=== PATIENT | male | born 1945 | race Caucasian/White ===

== ENCOUNTER 2016-05-26 06:14 | Inpatient (IN) | payer MEDICARE ==
[2016-05-19 10:55] LABS: BASOPHILS 0.5 %; BASOPHILS ABSOLUTE 0.05 10/3/uL (0.0-0.16); EOSINOPHILS 2.7 %; EOSINOPHILS ABSOLUTE 0.25 10/3/uL (0.0-0.53); HEMATOCRIT 45.9 % (40.0-51.0); HEMOGLOBIN 15.4 g/dL (13.6-17.8); IMMATURE GRANULOCYTES 1.8 %; IMMATURE GRANULOCYTES ABSOLUTE 0.17 10/3/uL (0.0-0.11); LYMPHOCYTES ABSOLUTE 3.81 10/3/uL (0.67-4.30); MEAN CORPUS HGB CONC 33.6 g/dL (32.0-36.0); MEAN CORPUSCULAR HEMOGLOB 29.6 pg (26.0-34.0); MEAN CORPUSCULAR VOLUME 88.3 fL (80-100); MONOCYTES 8.6 %; NEUTROPHILS 45.4 %; NEUTROPHILS ABSOLUTE 4.22 10/3/uL (2.02-8.40); PLATELET COUNT 242 10/3/uL (150-400); RBC DISTRIBUTION WIDTH 13.7 % (12.0-16.0); WHITE BLOOD CELLS 9.3 10/3/uL (4.5-10.5)
[2016-05-19 10:58] LABS: MANUAL DIFF NO %
[2016-05-19 11:04] LABS: BUN (BLOOD UREA NITROGEN) 16 MG/DL (6-23); CALCIUM, SERUM 9.6 MG/DL (8.5-10.4); CHLORIDE, SERUM 106 MMOL/L (96-112); CO2 (CARBON DIOXIDE) 28 MMOL/L (24-34); CREATININE 1.22 MG/DL (0.70-1.30); GFR AFRICAN AMERICAN 70 ML/MIN (>=60); GFR NON AFRICAN AMERICAN 60 ML/MIN (>=60); GLUCOSE, SERUM 160 MG/DL (60-99); PARTIAL THROMBO TIME 33.1 SEC (22.5-37.2); POTASSIUM, SERUM 4.8 MMOL/L (3.5-5.3); PROTIME (NOT ORD) 12.6 SEC (12.0-14.5); SODIUM, SERUM 143 MMOL/L (135-148)
[2016-05-19 11:06] LABS: ASCORBIC ACID (UR NOT ORDER) NEG (NEG); BILIRUBIN, URINE NEGATIVE (NEG); KETONE, URINE NEGATIVE (NEG); LEUKOCYTE ESTERASE(NOT OR NEG (NEG); WBC (NOT ORDERED) (RFLEX) 5 (0-5)
--- NOTE | ~2016-05-26 | HP ---
History And Physical [address] [address] NAME: JOES M MIGUEL SR : 46 STATUS : ADM IN [facility]#: [id number] AGE: 70 ADM/REG DATE : 05/26/16 MR#: [id number] REPORT SERV DATE: 05/27/16 DICTATED BY: NIKHIL LEGGETT DATE: 05/26/16 REPORT STATUS : Draft TRANSCRIBED BY: MODL DATE: 05/26/16 DATE OF ADMISSION: 05/26/2016 CHIEF COMPLAINT: Adenocarcinoma of the prostate, clinical stage T2b, Hilaria score 4+3=7, maximum PSA 4.3. HISTORY OF PRESENT ILLNESS: Mr. Miguel is a 70-year-old male who was diagnosed with adenocarcinoma of the prostate at the end of 2015. The patient initially did not want treatment, however, he subsequently decided to proceed with laparoscopic robot-assisted radical prostatectomy and bilateral pelvic node sampling. He will undergo that procedure today and be admitted afterwards. The patient has obstructive voiding symptoms. He denies erectile dysfunction, although I do not think he is sexually active. PAST MEDICAL HISTORY: Diabetes and dyslipidemia. PAST SURGICAL HISTORY: None. MEDICATIONS: Home medicines are aspirin which has been on hold, metformin which is on hold today, pravastatin, and some [id number]-[id number] medicines. ALLERGIES: NO KNOWN DRUG ALLERGIES. SOCIAL HISTORY: The patient has been a tobacco user. He denies alcohol abuse. FAMILY HISTORY: Negative for prostate cancer. REVIEW OF SYSTEMS: See nursing questionnaire. PHYSICAL EXAMINATION: GENERAL: Shows a well-developed, well-nourished white male, in no acute distress. He is awake, alert, and oriented x3. HEENT: Sclerae anicteric. NECK: Supple. LUNGS: Clear. HEART: Regular rate and rhythm. ABDOMEN: Soft, nontender. No palpable abdominal masses. No hepatosplenomegaly. GENITOURINARY: Penis normal. Testes descended and nontender. No masses. Prostate large, there is a nodule at the left base. EXTREMITIES: Lower extremities show no deformities. IMPRESSION: Adenocarcinoma of the prostate, clinical stage T2b, Cashion score 4+3=7. PLAN: Laparoscopic robot-assisted radical prostatectomy and bilateral pelvic node sampling. History And Physical [address] [address] NAME: JOSE M MIGUEL SR : 46 STATUS : ADM IN PAT#: [id number] AGE: 70 ADM/REG DATE : 05/26/16 MR#: [id number] REPORT SERV DATE: 05/27/16 DICTATED BY: NIKHIL LEGGETT DATE: 05/26/16 REPORT STATUS : Draft TRANSCRIBED BY: ANA DATE: 05/26/16 Potential complications of bleeding, infection, urinary incontinence, bladder neck obstruction, loss of ejaculate, erectile dysfunction, and injury to adjacent structures such as bladder, ureters, rectum, colon, intestine, nerves, as well as bowel obstruction and complications all have been explained to the patient. He both manually and verbally consents to proceed. PF/MODL Nikhil Leggett M.D. / [id number] CC: Nikhil Leggett M.D.
--- NOTE | ~2016-05-26 | OP ---
Record Of Operation [facility] [address] [place]. [address] NAME: JOSE M MIGUEL SR : 46 STATUS : ADM IN PAT#: [id number] AGE: 70 ADM/REG DATE : 05/26/16 MR#: [id number] REPORT SERV DATE: 05/27/16 DICTATED BY: NIKHIL LEGGETT DATE: 05/26/16 REPORT STATUS : Draft TRANSCRIBED BY: MODL DATE: 05/26/16 DATE OF PROCEDURE: 05/26/2016 PREOPERATIVE DIAGNOSIS: Adenocarcinoma of the prostate, clinical stage T2b, Hilaria score 4+3=7, maximum PSA 4.3. POSTOPERATIVE DIAGNOSIS: Adenocarcinoma of the prostate, clinical stage T2b, Hilaria score 4+3=7, maximum PSA 4.3. PROCEDURE: 1. Laparoscopic robot-assisted radical prostatectomy. 2. Laparoscopic robot-assisted bilateral pelvic node sampling. SURGEON: Nikhil Leggett M.D. NECKTIE OPERATOR POCKETS AND PIECES: Javier Downs. ANESTHESIA: General and local. BLOOD LOSS ESTIMATED: 250 mL. FLUID REPLACEMENT: 3 L of crystalloid. DRAINS: A 15-mm Saad drain in prevesical space and an 18-Tanzanian Leggett catheter per urethra with 15 mL of sterile water inflating the catheter balloon. INDICATION: A 70-year-old male with adenocarcinoma of the prostate. TECHNIQUE: The patient was identified, brought to the operating room, administered general anesthetic agent by the Anesthesia Service and intubated. He was positioned in the dorsal lithotomy position, appropriately padded and secured to the table. The abdomen was previously clipped and the entire abdomen, penis, groin, scrotum, and perineum were prepped and draped in the usual sterile fashion. A 16-Tanzanian Leggett catheter was passed in the bladder and left for drainage. All laparoscopic port sites were first infiltrated with 0.5% Marcaine plain. A 3-cm skin incision was made above the umbilicus, and a Kathrine technique was used to place a balloon trocar into the peritoneal space. Pneumoperitoneum was created by insufflating carbon dioxide. The abdominal pressure was raised to 15 mmHg. The patient was placed in steep Trendelenburg. Three robot arm ports and two mailing machine assistant ports were placed under direct laparoscopic vision. Once all ports were in position, the da Isha robot was brought to the table and mated to the ports. I took down some adhesions between the omentum and the bladder. I then took down some adhesions between the left colon and the pelvic sidewall. The cul-de-sac was opened sharply, and the seminal structures were exposed. The left and right vasa deferentia were clipped proximally and transected distally. The left and right seminal vesicles were dissected out and then blood supply was clipped laterally. Record Of Operation [facility] [address] [place]. [address] NAME: JOSE M MIGUEL SR : 46 STATUS : ADM IN PAT#: [id number] AGE: 70 ADM/REG DATE : 05/26/16 MR#: [id number] REPORT SERV DATE: 05/27/16 DICTATED BY: NIKHIL LEGGETT DATE: 05/26/16 REPORT STATUS : Draft TRANSCRIBED BY: ANA DATE: 05/26/16 Denonvilliers fascia was opened sharply as we swept the rectum off the undersurface of the prostate all the way out to the apex bilaterally. I released the neurovascular bundles of both the left and right side. I then divided the median umbilical ligaments and swept the bladder off the anterior abdominal wall and symphysis pubis. The peritoneum was opened just lateral to the median umbilical ligaments on each side all the way to the vasa deferentia bilaterally. The fat overlying the prostate gland was taken off with sharp dissection. The endopelvic fascia was pierced sharply at the prostatovesical junction, carried this out to the puboprostatic ligaments bilaterally. Attachments of striated sphincter were taken off the apex of prostate sharply. I encountered some bleeding from the dorsal venous complex. Dorsal venous complex was secured with laparoscopic WOLF stapling device and then divided. I oversewed this with 3-0 PDS. I switched to a 30-degree down lens and developed a plane between the bladder neck and the prostate. I opened the anterior bladder neck and elevated the Leggett catheter and came to the posterior bladder neck and I encountered my previously dissected out seminal structures. The lateral attachments of the bladder were taken off the prostate with sharp dissection. The posterior pedicles were taken with locking clips and then divided. On the left side, I sacrificed part of the left neurovascular bundle. On the right side, I am able to spare and all the way out to the apex. The prostate is now mobile all the way out to the apex. The urethra was divided and the last attachment of striated sphincter was taken off the apex of the prostate sharply. The posterior striated sphincter was divided. I took the fresh frozen section from the posterior striated sphincter. The bag was containing just muscular tissue and no prostate gland. The specimen was placed in the specimen retrieval bag and held for later retrieval. The abdominal pressure was lowered down to 7 mmHg. I irrigated the pelvis copiously. Oversewed part of the distal left neurovascular bundle. It was done with 3-0 PDS. Once fastidious hemostasis was achieved, I performed posterior reconstruction in two layers using 3-0 V-Loc. I then did a modified Van Velthoven vesicourethral anastomosis with 3-0 V-Loc. When the anastomosis was completed, I inserted a new 18-Tanzanian Leggett catheter. 15 mL of sterile water inflated the catheter balloon. I later tested the bladder. There was some extravasation. I sampled the external iliac and obturator lymph nodes from left and right side. Deanna packets seemed to cut in large. Locking clips and metallic clips were used for lymphostasis and hemostasis. The specimen packets were placed in a specimen retrieval bag and held for later retrieval. The instruments were taken out of the robot arm port and a 15-mm Saad drain was placed through that port and left in the prevesical space. The ports removed and the drain was later sutured to the skin with 2-0 Prolene. The da Isha robot was undocked. I transferred the string of the specimen bag out through the umbilical port. The mailing machine assistant 12 mm port was Record Of Operation [address] [address] NAME: JOSE M MIGUEL SR : 46 STATUS : ADM IN PAT#: [id number] AGE: 70 ADM/REG DATE : 05/26/16 MR#: [id number] REPORT SERV DATE: 05/27/16 DICTATED BY: NIKHIL LEGGETT DATE: 05/26/16 REPORT STATUS : Draft TRANSCRIBED BY: MODIsabella DATE: 05/26/16 removed and the fascia there was closed with a Thomas-Parish endoscopic closure system. All other ports were removed under low pressure. No port site bleeding was noted. I removed the balloon trocar and extended my fascial incision transversely by 2 cm in each direction. I extended the skin incision 1 cm cephalad. I then delivered the specimen out through the umbilical wound. I closed the fascia with [id number] 0 Vicryl sutures. The subcutaneous tissue of all ports was irrigated copiously. The skin of all ports was closed with 4-0 Monocryl. Dressings were applied, the catheter was secured, and the patient was awakened and taken to the recovery unit in stable and satisfactory condition. ROSINA/ANA Nikhil Leggett M.D. / [id number] CC: Nikhil Leggett M.D.
[~2016-05-26 06:14] MED LIST: ASAB PO; AVANDAMET1 TA4 PO; FIBER PILL PO; FLOMAX4 PO; GLUCOPHAGE1000 MG PO; LORT7 PO; NEXIUM40 PO; PRAVACHOL40 MG PO; SLEEP AID25 MG PO
[2016-05-26 14:20] LABS: BUN (BLOOD UREA NITROGEN) 14 MG/DL (6-23); CHLORIDE, SERUM 104 MMOL/L (96-112); CREATININE 1.13 MG/DL (0.70-1.30); GFR AFRICAN AMERICAN 76 ML/MIN (>=60); GFR NON AFRICAN AMERICAN 66 ML/MIN (>=60); SODIUM, SERUM 141 MMOL/L (135-148)
[2016-05-26 14:21] LABS: CALCIUM, SERUM 7.7 MG/DL (8.5-10.4); CO2 (CARBON DIOXIDE) 23 MMOL/L (24-34); GLUCOSE, SERUM 226 MG/DL (60-99); POTASSIUM, SERUM 3.8 MMOL/L (3.5-5.3)
[2016-05-27 07:06] LABS: HEMATOCRIT 34.8 % (40.0-51.0); HEMOGLOBIN 11.6 g/dL (13.6-17.8)
[2016-05-27 07:08] LABS: BUN (BLOOD UREA NITROGEN) 14 MG/DL (6-23); CALCIUM, SERUM 7.8 MG/DL (8.5-10.4); CHLORIDE, SERUM 103 MMOL/L (96-112); CO2 (CARBON DIOXIDE) 27 MMOL/L (24-34); CREATININE 1.08 MG/DL (0.70-1.30); GFR AFRICAN AMERICAN 81 ML/MIN (>=60); GFR NON AFRICAN AMERICAN 70 ML/MIN (>=60); POTASSIUM, SERUM 4.1 MMOL/L (3.5-5.3); SODIUM, SERUM 138 MMOL/L (135-148)
[2016-05-27 07:11] LABS: GLUCOSE, SERUM 140 MG/DL (60-99)
[2016-05-27] MEDS ORDERED: XODOL 7.5-3001 EACH PO (09:42)
== END 2016-05-27 11:41 | disposition home or self-care (01) | DRG 707 ==
LOC: SDC/OF 06:14 → PACU 13:46 → 4SO 15:33
PROVIDERS: Urology
PROC: 07BC4ZX Excision of Pelvis Lymphatic, Percutaneous Endoscopic Approach, Diagnostic (ICD-10-PCS; principal; 2016-05-26 07:30)
PROC: 0VT34ZZ Resection of Bilateral Seminal Vesicles, Percutaneous Endoscopic Approach (ICD-10-PCS; principal; 2016-05-26 07:30)
PROC: 0VTQ4ZZ Resection of Bilateral Vas Deferens, Percutaneous Endoscopic Approach (ICD-10-PCS; principal; 2016-05-26 07:30)
PROC: 0VT04ZZ Resection of Prostate, Percutaneous Endoscopic Approach (ICD-10-PCS; principal; 2016-05-26 07:30)
PROC: 8E0W4CZ Robotic Assisted Procedure of Trunk Region, Percutaneous Endoscopic Approach (ICD-10-PCS; principal; 2016-05-26 07:30)
DX: C61 Malignant neoplasm of prostate (principal); N13.8 Other obstructive and reflux uropathy; E11.9 Type 2 diabetes mellitus without complications; E78.5 Hyperlipidemia, unspecified; Z79.82 Long term (current) use of aspirin; Z79.84 Long term (current) use of oral hypoglycemic drugs; F17.200 Nicotine dependence, unspecified, uncomplicated
CPT/HCPCS: 80048; 81001; 82962; 83735; 85014; 85018; 85025; 85610; 85730; 88305; 88307; 88309; 88331; 93005; A9270-GY; J0690; J1170; J2250; J2270; J2370; J2405; J2710; J3010